=== PATIENT | female | born 2005 | race Caucasian/White ===

== ENCOUNTER 2024-07-08 11:46 | Emergency (ER) | payer SELFPAY ==
--- NOTE | 2024-07-08 11:48 | ED.URI ---
HPI - URI/Sore Throat General Chief Complaint: Upper Respiratory Infection Stated Complaint: sore throat Time Seen by Provider: 07/08/24 12:11 Source: patient, RN notes reviewed and old records reviewed Mode of arrival: ambulatory Limitations: no limitations History of Present Illness HPI Narrative: 19-year-old female presents to the [facility] with complaints of sore throat for 1 week. Denies fevers, body aches. Reports a history of multiple strep throat infections. Related Data Home Medications ?Medication ?Instructions ?Recorded ?Confirmed ?Last Taken ?Type control pill 07/08/24 Unknown History Allergies Allergy/AdvReac Type Severity Reaction Status Date / Time berry Allergy Unknown Unknown Verified 07/08/24 12:04 Review of Systems Review of Systems: All systems reviewed & are unremarkable except as noted in HPI and below Constitutional: Constitutional: Reports no additional constitutional complaints ENT: Reports as per HPI and Reports sore throat Cardiovascular: Cardiovascular: Reports no additional cardiovascular complaints, Denies chest pain and Denies dyspnea Respiratory: Respiratory: Reports no additional respiratory complaints, Denies chest congestion, Denies cough and Denies dyspnea Musculoskeletal: Musculoskeletal: Reports no additional musculoskeletal complaints Integumentary/Breasts: Skin/Breast: Reports system reviewed and no additional complaints, except as docu PMFSH Comments At the time of my signature, I reviewed and agree with the nursing past medical, surgical, social, and family history. There is no relevant family history pertinent to the patient complaint. Exam Const: General: cooperative, healthy appearing, comfortable, no acute distress, well developed, alert and well nourished Nutritional Appearance: well nourished Orientation/consciousness: patient oriented x3 Limitations: no limitations HENMT: Head: normal to inspection Ears: hearing grossly normal bilaterally, external ears normal, TM's normal bilaterally, EAC's normal, mastoids normal and no periauricular adenopathy Face/Nose/Sinus: Normal external nose present, Normal nares present, No nasal discharge present and Abnormal external nose present Mouth: Yes Normal oral and palatal mucosa present, Yes lip normal, Yes tongue normal and Yes moist mucous membranes Throat: posterior oropharynx normal, uvula midline, postnasal drainage and no uvular edema Eyes: General: appearance normal, both eyes and all related structures Alignment and Position: alignment normal Neck: Neck: normal visual inspection, full ROM, no lymphadenopathy and no meningeal signs Chest: Chest palpation & inspection: normal inspection of the chest Resp: Effort & Inspection: normal respiratory effort and able to speak in complete sentences Auscultation: clear to auscultation bilaterally, no crackles, no rales, no rhonchi and no wheezes Cardio: Rate: regular rate Skin: General skin exam: normal color and no rashes or lesions noted Neuro: General: patient oriented x3, gait normal, moves all extremities and no meningeal signs Cognition (Neuro): normal cognition Speech: normal speech Gait exam (Neuro): Normal gait present Extrem: General: normal to inspection, full ROM, capillary refill normal and normal gait Psych: Appearance: grossly normal and well kempt Mental Status: mental status grossly normal Speech and movement: Normal speech and movement present and Clear speech present Affect: normal affect Attitude: cooperative Course Course Level of Care: Express Care Visit Vital Signs Vital signs: Vital Signs Temperature 98.2 F 07/08/24 12:00 Pulse Rate 92 07/08/24 12:00 Respiratory Rate 16 07/08/24 12:00 Blood Pressure 150/72 H 07/08/24 12:00 Pulse Oximetry 100 07/08/24 12:00 Oxygen Delivery Room Air 07/08/24 12:00 Temperature 98.2 F 07/08/24 12:00 Pulse Rate 92 07/08/24 12:00 Respiratory Rate 16 07/08/24 12:00 Blood Pressure 150/72 H 07/08/24 12:00 Pulse Oximetry 100 07/08/24 12:00 Oxygen Delivery Room Air 07/08/24 12:00 Reviewed MDM - URI/Sore Throat MDM Narrative Medical decision making narrative: Patient sitting in exam. Nontoxic, vitals stable Patient sore throat x1 week. Postnasal drainage done in exam. Strep test negative, will culture patient appropriate for outpatient treatment with close follow-up Discharge instructions reviewed with patient, as well as provided in writing per nursing staff. The instructions also include specific and strict return/GO TO THE ER as well as f/u information. All questions have been answered, and the patient deny any further questions with discharge and discharge plan. Some parts of this dictation were generated by voice recognition software and may contain typographical and/or grammatical inaccuracies. Differential Diagnosis Differential diagnosis: Likely upper respiratory infection, viral infection and pharyngitis Lab Data Labs: Lab Results 07/08/24 Range/Units 12:02 POC Grp A Strep Screen Negative (Negative) Critical Care Time Critical Care Time Critical Care Time: No Discharge Plan Discharge Clinical Impression: PND (post-nasal drip) Patient Disposition: Home Condition: Stable Instructions: Postnasal Drip (DC) Additional Instructions: Your rapid strep swab was negative today at [facility]. A throat culture will be sent to the laboratory for further testing. If the test is positive, you will receive a phone call within 48 hours and an appropriate antibiotic will be initiated at that time. It is very important to treat your symptoms. Drink plenty of water, Gatorade, Pedialyte, ice pops or Jell-O. -Alternate Tylenol and Motrin per package directions for fever or pain. You can alternate every 4 hours -Antihistamine medication such as Zyrtec/Claritin/Ashley during the day can help improve symptoms. -doing daily nasal irrigations can help relieve pressure your sinuses. Things like a Neti pot -Use Flonase twice a day for 5 days then daily to help reduce the inflammation and dry up your sinuses. -You can also use Mucinex. Be sure to drink plenty of water with this medication at least 8 ounces with every dose and it is important to drink 8 to 10 glasses of water per day. Water is a natural decongestant -Eat and drink things that are easy to swallow, like tea or soup, or popsicles. -Oral rinses such as: Salt water gargles and/or may use topical anesthetic (eg. Chloraseptic spray) or lozenges to relieve dryness or throat pain). -Frequent hand washing or hand powder press operator is one of the best ways to prevent spread of infection. -Using a vaporizer or humidifier at night will also help thin secretions and help with coughing up phlegm. -Follow up with primary care provider in 7-10 days if condition is not improving - For new or worsening symptoms go directly to the nearest ER Patient Language: Swedish Prescriptions: No Action control pill Follow-up/Referrals: UNKNOWN,DOCTOR [Non-Staff] - Time of Disposition: 12:14
[2024-07-08 12:00] VITALS: BP 150/72; PULSE 92; RESP 16; TEMP 36.8; O2SAT 100
[2024-07-08 12:13] LABS: EDSTREPNEGPOS1 Negative (Negative)
== END 2024-07-08 12:18 | disposition home or self-care (01) ==
PROVIDERS: Emergency Provider Nurse Practitioner
DX: R09.82 Postnasal drip (principal)
CPT/HCPCS: 87081; 87880; 99203; G0463

== ENCOUNTER 2025-01-18 09:46 | Outpatient (CLI) | payer OTHER, SELFPAY ==
--- NOTE | ~2025-01-18 | US_ITS ---
EXAMINATION: US pelvic complete w TV, 01/18/2025 9:50 BENEFITS COORDINATOR HISTORY: R10.20 - Pelvic and perineal pain unspecified side Comparison: None Technique: Riddle-scale and color Doppler images were obtained. Findings: Uterus: Uterus anteverted 7 x 4.1 x 4.7 cm. . Endometrium 2.3 mm. Right Ovary:Right ovary 3.5 x 2 x 2 cm, no adnexal mass, normal flow. Left Ovary: Left ovary 3.5 x 2.5 x 2.2 cm, no adnexal mass, normal flow Free Fluid: None Impression: No acute abnormality. Reviewed, dictated and finalized at location P. FITS COORDINATOR Impression: No acute abnormality.
== END 2025-01-18 09:47 | disposition home or self-care (01) ==
PROVIDERS: Visit Provider Student in an Organized Health Care Education/Training Program
DX: R10.20 Pelvic and perineal pain unspecified side (principal); N92.1 Excessive and frequent menstruation with irregular cycle
CPT/HCPCS: 76830; 76856